=== PATIENT | male | born 1945 | race Caucasian/White ===

== ENCOUNTER 2016-08-31 18:02 | Emergency (ER) | payer OTHER ==
[2016-08-31 18:12] VITALS: BP 139/89; PULSE 73; RESP 16; TEMP 97.3; O2SAT 95
--- NOTE | 2016-08-31 18:36 | EDPHY ---
H & P Time Seen by Provider: 08/31/16 18:21 HPI/ROS: CHIEF COMPLAINT: Laceration forehead HISTORY OF PRESENT ILLNESS: 71-year-old male presents to the emergency department with forehead laceration. The patient was at home and he was attaching a hitch to his vehicle and it fell and hit him in the forehead. The incident happened just prior to arrival. He denies a headache. Did not lose consciousness. Denies neck or back pain. Denies chest pain or difficulty breathing. Denies injury to upper lower extremities. He is unsure of his last tetanus shot. REVIEW OF SYSTEMS: Constitutional: No fever, no chills. Eyes: No double or blurry vision. ENT: No sore throat. Respiratory: No cough, no shortness of breath. Cardiac: No chest pain. Gastrointestinal: No abdominal pain, vomiting or diarrhea. Genitourinary: No dysuria. Musculoskeletal: No neck or back pain. Skin: For laceration as above. No rashes. Neurological: No headache. Past Medical/Surgical History: Coon's esophagus, prostatectomy, hypertension, orthopedic surgeries Social History: Smoking Status: Never smoked Physical Exam: General Appearance: Alert, no distress. Mentating normally and answering questions appropriately. Eyes: Pupils equal and round. Extraocular motions are all intact. Nontender to palpate over superior or inferior orbital rims on the left side. ENT: Mouth: Mucous membranes moist. Respiratory: No wheezing, rhonchi, or rales, lungs are clear to auscultation. Cardiovascular: Regular rate and rhythm. Gastrointestinal: Abdomen is soft and nontender, no masses, no rebound or guarding, bowel sounds normal. Neurological: Alert and oriented x 3, cranial nerves II through XII grossly intact Skin: 2.5 cm laceration noted above the left eyebrow. Warm and dry, no rashes. Musculoskeletal: Nontender to palpate along the cervical, thoracic or lumbar spine. Neck is supple. Extremities: Full range of motion and no peripheral edema. Psychiatric: Patient is oriented X 3, there is no agitation. Constitutional: Initial Vital Signs Temperature (C) 36.3 C 08/31/16 18:08 Heart Rate 73 08/31/16 18:08 Respiratory Rate 16 08/31/16 18:08 Blood Pressure 139/89 H 08/31/16 18:08 O2 Sat (%) 95 08/31/16 18:08 O2 Delivery Mode Room Air Allergies/Adverse Reactions: cephalexin Allergy (Verified 08/31/16 18:06) NSAIDS (Non-Steroidal Anti-Inflamma Allergy (Verified 08/31/16 18:06) thimerosal Allergy (Verified 08/31/16 18:06) Home Medications: Medication Instructions Recorded Ascorbic Acid [Vitamin C 500 mg 500 mg PO BID 03/05/15 (*)] Cholecalciferol Vit D3 [Vitamin D3 1,000 units PO DAILY 03/05/15 (*)] Glucosamine/Chondroitin 1 each PO BID 03/05/15 [Glucosamine/Chondroitin (*)] Herbals/Supplements -Info Only 1 ea PO DAILY 03/05/15 Pantoprazole Sodium [Protonix 40mg 40 mg PO DAILY 03/05/15 (*)] Cholecalciferol Vit D3 [Vitamin D3 1,000 units PO DAILY #0 tab 03/08/15 (*)] Diazepam [Valium 5 MG (*)] 2.5 - 5 mg PO Q6 PRN #0 tab 03/08/15 Glucosamine/Chondroitin 1 each PO BID #0 cap 03/08/15 [Glucosamine/Chondroitin (*)] Lisinopril [Zestril 20 mg (*)] 20 mg PO DAILY #0 tab 03/08/15 PARoxetine HCL [Paxil 20mg (*)] 20 mg PO BID #0 tab 03/08/15 Zolpidem Tartrate [Ambien 5MG (*)] 5 - 10 mg PO HS PRN #0 tab 03/08/15 buPROPion SR [Wellbutrin 150mg SR 150 mg PO BID #0 tab 03/08/15 (*)] Medical Decision Making Procedures: Laceration repair. Verbal consent was obtained from the patient. The 2.5 cm laceration on the left anterior forehead above left eyebrow was anesthetized using 1% lidocaine with epinephrine. The wound was irrigated with saline, draped and explored to its base with a gloved finger. There were no deep structures involved. No tendon injury was identified. The wound was repaired with 5 0 Prolene, 7 sutures. The wound repair was simple. The procedure was performed by myself. ED Course/Re-evaluation: 71-year-old male presents to the emergency department with forehead laceration. The wound was repaired, see procedure note. Patient is mentating normally and has a normal neurologic examination. I discussed the pros and cons of CT imaging of his brain including radiation exposure the patient declined. Feel that he has a capacity to make this decision. He will return if he develops headache, vomiting, altered mental status, or any other concerns. Differential Diagnosis: Head injury including but not limited to concussion, skull fracture, intraparenchymal contusion, subarachnoid, subdural and epidural hematoma. - Data Points Medications Given: Discontinued Medications Diphtheria/Tetanus/Acell Pertussis (Boostrix) 0.5 ml IM .ONCE ONE Stop: 08/31/16 18:50 Last Admin: 08/31/16 18:52 Dose: 0.5 ml Departure - Departure Disposition: Home, Routine, Self-Care Clinical Impression: Forehead laceration Qualifiers: Encounter type: initial encounter Qualified Code(s): S01.81XA - Laceration without foreign body of other part of head, initial encounter Condition: Good Instructions: Care For Your Stitches (ED), Laceration (ED), Acute Wounds (ED) Additional Instructions: Wound Care Follow-Up: Removal of sutures in 7 days. Suture removal is complimentary in uncomplicated cases. Infection or abnormal findings would require reevaluation by the MD. In that case, you may be billed. Your given a tetanus shot today in the emergency department. Return if he notices any signs or symptoms of infection such as redness, swelling, increased pain, fever, purulent drainage. Referrals: LOUIS PTAEL [Primary Care Provider] - As per Instructions
[2016-08-31] MEDS ORDERED: TDAP ADULT 0.5 ML INJ (BOOSTRIX) IM ONE (18:49)
== END 2016-08-31 19:06 | disposition home or self-care (01) ==
PROC: 0HQ1XZZ Repair Face Skin, External Approach (ICD-10-PCS; principal; 2016-08-31)
DX: S01.81XA Laceration without foreign body of other part of head, initial encounter (principal); I10 Essential (primary) hypertension; Z23 Encounter for immunization; W18.09XA Striking against other object with subsequent fall, initial encounter; Y92.009 Unspecified place in unspecified non-institutional (private) residence as the place of occurrence of the external cause; Y99.8 Other external cause status; Y93.89 Activity, other specified

== ENCOUNTER 2016-09-13 17:33 | Emergency (ER) | payer OTHER ==
[2016-09-13 17:42] VITALS: RESP 18; O2SAT 95
--- NOTE | 2016-09-13 17:47 | EDPHY ---
H & P Time Seen by Provider: 09/13/16 17:46 HPI/ROS: Chief complaint. Foot injury HPI. 71-year-old male was on hooking a trailer from his car. The [place] with the wheel to hold the trailer up was apparently not fully engaged in the trailer came down crushing the top of his right foot. No other injuries. No previous injury. He has laceration as well as pain. Good movement toes. Distal motor vascular sensitivity is intact. ROS Constitutional. no fever/chills, no weakness Eyes. no problems with vision ENT. no sore throat, no nasal drainage Cardiovascular. no chest pain Respiratory. no shortness of breath, no cough Abdominal. no abdominal pain, no nausea/vomiting, no diarrhea . no problems urinating MS. Right foot pain Skin. Laceration dorsum right foot Lymph. no swollen glands Neuro. no headache, no dizziness, no difficulty walking or with speech Past Medical/Surgical History: Coon's esophagus, prostatectomy, C-spine fusion, hypertension Social History: , nonsmoker, no alcohol Smoking Status: Never smoked Physical Exam: General Appearance: Alert well-developed male moderate distress vital signs are stable Eyes: Pupils equal and round no pallor or injection. ENT, Mouth: Mucous membranes are moist. Respiratory: There are no retractions, lungs are clear to auscultation. Cardiovascular: Regular rate and rhythm. Gastrointestinal: Abdomen is soft and nontender, no masses, bowel sounds normal. Neurological: Awake and alert, sensory and motor exams grossly normal. Skin: 5 cm laceration dorsum right midfoot Musculoskeletal: Tenderness to midfoot. Active extension all toes against resistance. Distal sensory and capillary refill normal Extremities symmetrical, full range of motion. Psychiatric: Patient is oriented X 3, there is no agitation. Constitutional: Initial Vital Signs Temperature (C) 36.4 C 09/13/16 17:39 Heart Rate 76 09/13/16 17:39 Respiratory Rate 18 09/13/16 17:39 Blood Pressure 149/87 H 09/13/16 17:39 O2 Sat (%) 95 09/13/16 17:39 O2 Delivery Mode Room Air Allergies/Adverse Reactions: cephalexin Allergy (Verified 09/13/16 17:38) NSAIDS (Non-Steroidal Anti-Inflamma Allergy (Verified 09/13/16 17:38) thimerosal Allergy (Verified 09/13/16 17:38) Home Medications: Medication Instructions Recorded Ascorbic Acid [Vitamin C 500 mg 500 mg PO BID 03/05/15 (*)] Cholecalciferol Vit D3 [Vitamin D3 1,000 units PO DAILY 03/05/15 (*)] Glucosamine/Chondroitin 1 each PO BID 03/05/15 [Glucosamine/Chondroitin (*)] Herbals/Supplements -Info Only 1 ea PO DAILY 03/05/15 Pantoprazole Sodium [Protonix 40mg 40 mg PO DAILY 03/05/15 (*)] Cholecalciferol Vit D3 [Vitamin D3 1,000 units PO DAILY #0 tab 03/08/15 (*)] Diazepam [Valium 5 MG (*)] 2.5 - 5 mg PO Q6 PRN #0 tab 03/08/15 Glucosamine/Chondroitin 1 each PO BID #0 cap 03/08/15 [Glucosamine/Chondroitin (*)] Lisinopril [Zestril 20 mg (*)] 20 mg PO DAILY #0 tab 03/08/15 PARoxetine HCL [Paxil 20mg (*)] 20 mg PO BID #0 tab 03/08/15 Zolpidem Tartrate [Ambien 5MG (*)] 5 - 10 mg PO HS PRN #0 tab 03/08/15 buPROPion SR [Wellbutrin 150mg SR 150 mg PO BID #0 tab 03/08/15 (*)] Amoxicillin/Clavulanate Pot 875 mg PO BID #14 tab 09/13/16 [Augmentin 875 MG TAB (*)] oxyCODONE/APAP 5/325 [Percocet 1 tab PO Q4-6PRN PRN #14 tab 09/13/16 5/325] Medical Decision Making - Diagnostics Imaging Results: Imaging Impressions Foot X-Ray 09/13/16 17:55 Impression: 1. Transverse fractures of the second and third metatarsal diaphyses with plantar displacement and minimal comminution. 2. Possible erosive osteoarthritis or inflammatory arthritis of the distal interphalangeal joint of the third toe with scattered erosions as above suggesting inflammatory arthritis. 3. Additional findings as above. X-ray right foot interpreted by me shows fractures midshaft metatarsals 2 and 3 with mild displacement Procedures: Procedure: Laceration repair. Verbal consent was obtained from the patient. The 5 cm laceration on the dorsum right foot was anesthetized in the usual fashion. The wound was irrigated, draped and explored to its base with a gloved finger. There were no deep structures involved. No tendon injury was identified. The wound was repaired with ten 4-0 Prolene sutures. The wound repair was simple. The procedure was performed by myself. IV Levaquin as patient says is allergic to cephalexin ED Course/Re-evaluation: On further discussion about the patient's allergy to cephalexin he tells me that 1 time he was taking Keflex and woke up with numbness to the left arm which went away. It does not really sound like this is typical allergy. Patient is placed in fiberglass posterior splint. Post splint application shows good anatomic position and distal motor vascular sensitivity intact. He is placed on crutches. Sent home with Percocet. He will begin Augmentin tomorrow Re-evaluation 8:40 p.m. patient is stable. The patient, his , and I discussed imaging study results, treatment plan including importance of follow- up and further evaluation. They expressed understanding and agreement Differential Diagnosis: I considered fracture, dislocation, laceration, retained foreign body, tendon injury, infection potential - Data Points Medications Given: Discontinued Medications Levofloxacin/Dextrose (Levaquin 750 Mg (Premix)) 150 mls @ 100 mls/hr IV EDNOW ONE PRN Reason: Protocol Stop: 09/13/16 19:50 Last Admin: 09/13/16 19:19 Dose: 150 mls Departure - Departure Disposition: Home, Routine, Self-Care Clinical Impression: Laceration Metatarsal fracture Qualifiers: Encounter type: initial encounter Metatarsal bone: second Fracture type: open Fracture alignment: displaced Laterality: right Qualified Code(s): S92.321B - Displaced fracture of second metatarsal bone, right foot, initial encounter for open fracture Condition: Good Instructions: Foot Fracture in Adults (ED) Additional Instructions: Ice and elevation next 24-48 hours. Augmentin as antibiotic. Tylenol or Percocet as needed for pain. Splint and crutches until see orthopedist. Call orthopedist in morning to be re-evaluated in the office in the next 2-3 days. Tell them you have an open fracture of the 2nd and 3rd metatarsals of your right foot. Return for worsening pain, fever, vomiting Referrals: LOUIS PATEL [Primary Care Provider] - As per Instructions Jose J Roberts MD [Medical Doctor] - 2-3 days, call for appt. Prescriptions: Amoxicillin/Clavulanate Pot [Augmentin 875 MG TAB (*)] 875 mg PO BID #14 tab oxyCODONE/APAP 5/325 [Percocet 5/325] 1 tab PO Q4-6PRN PRN #14 tab PRN Reason: Pain, Moderate
[2016-09-13] MEDS ORDERED: OXYCODONE/APAP 5/325MG PREPACK#4 BTL TAKEHOME ONE (19:19)
[2016-09-13 21:08] VITALS: BP 125/84; PULSE 81; TEMP 97.9
== END 2016-09-13 21:21 | disposition home or self-care (01) ==
PROC: 0HQMXZZ Repair Right Foot Skin, External Approach (ICD-10-PCS; principal; 2016-09-13)
DX: S92.321B Displaced fracture of second metatarsal bone, right foot, initial encounter for open fracture (principal); S91.311A Laceration without foreign body, right foot, initial encounter; I10 Essential (primary) hypertension; W23.1XXA Caught, crushed, jammed, or pinched between stationary objects, initial encounter; Y93.89 Activity, other specified
CPT/HCPCS: 12002; 73630; 96365; 96366; 99284; J1956

== ENCOUNTER 2018-03-14 22:08 | Inpatient (IN) | payer OTHER ==
[2018-03-14] MEDS ORDERED: NS 1,000 ML IV ONE (22:10)
--- NOTE | 2018-03-14 22:31 | EDPHY ---
H & P Stated Complaint: bilat arm pain, radiates to chest Time Seen by Provider: 03/14/18 22:27 HPI/ROS: HPI CHIEF COMPLAINT: Bilateral arm pain, chest pain HISTORY OF PRESENT ILLNESS: A 72-year-old male, presents emergency room by private vehicle with his for bilateral forearm pain and chest pain. He states that he was at [employer] tonight. He started feeling sick. Around 8pm a.m. He had to leave [employer] went out to the lobby. Where he felt unwell. Nauseous. He then developed some bilateral arm pain. Mainly discomfort in his bilateral forearms. He also reports that he had some left- sided chest discomfort. He denies any pleuritic pain or shortness of breath. Denies fever. Denies productive cough. Patient describes achy sensation left- sided chest bilateral forearms. Past Medical History: Past medical history significant for hypertension, mild cognitive decline, possibly early dementia Past Surgical History: No recent surgery Social History: Denies drugs alcohol tobacco. Family History: noncontributory ROS REVIEW OF SYSTEMS: 10 Systems were reviewed and negative with the exception of the elements mentioned in the history of present illness. Exam Constitutional appears well nontoxic triage nursing summary reviewed, vital signs reviewed, awake/alert. Eyes normal conjunctivae and sclera, EOMI, PERRLA. HENT normal inspection, atraumatic, moist mucus membranes, no epistaxis, neck supple/ no meningismus, no raccoon eyes. Respiratory clear to auscultation bilaterally, normal breath sounds, no respiratory distress, no wheezing. Cardiovascular cardiovascular exam patient has good pulses bilaterally both radial pulses are 2+, equal and symmetrical comma no abdominal pulse siding mas , rate normal, regular rhythm, no murmur, no edema, distal pulses normal. Gastrointestinal soft, non-tender, no rebound, no guarding, normal bowel sounds, no distension, no pulsatile mass. Genitourinary no CVA tenderness. Musculoskeletal no midline vertebral tenderness, full range of motion, no calf swelling, no tenderness of extremities, no meningismus, good pulses, neurovascularly intact. Skin pink, warm, & dry, no rash, skin atraumatic. Neurologic awake, alert and oriented x 3, AAOx3, moves all 4 extremities equally, motor intact, sensory intact, CN II-XII intact, normal cerebellar, normal vision, normal speech. Psychiatric normal mood/affect. Heme/Lymph/Immune no lymphadenopathy. Differential diagnosis includes but is not limited to: ACS, atypical chest pain , pneumothorax, pneumonia, pulmonary embolism, aortic dissection, congestive heart failure, tumor, musculoskeletal pain, esophageal pain, GERD, peptic ulcer disease, pancreatitis Medical Decision Making: Plan for this patient IV establishment full cardiac specialist, EKG to rule out acute coronary syndrome, troponin, chest x-ray low threshold for CT of the chest given bilateral arm pain and chest pain. Rule out aortic dissection. Check D-dimer. Re-evaluation: EKG interpretation by me on record in [facility] system. Impression time of EKG 2223 there is no old EKG to compare this to however this EKG is reading sinus rhythm rate of 71, minimal ST depression in lateral leads lead 1, less so in lead aVL. Q-waves noted V1 V2. No ST elevation. No old EKG to compare this to. EKG was performed due to chest pain. Troponin noted be negative. D-dimer slightly positive. ED x-ray chest one view negative for acute cardiac pulmonary disease CT angiogram of the chest shows no evidence of aortic dissection or pulmonary embolism care called to me by Dr. Stroud. 1217: Discussed results with the patient. And what the bedside. Agrees to stay tonight for further cardiac evaluation given abnormal EKG, chest discomfort relieved by nitroglycerin. Repeat EKG time 23:45 p.m. T-wave abnormalities lead 3 and AVF. Source: Patient - Personal History Current Tetanus/Diphtheria Vaccine: Yes Current Tetanus Diphtheria and Acellular Pertussis (TDAP): Yes - Medical/Surgical History Hx Asthma: No Hx Chronic Respiratory Disease: No Hx Diabetes: No Hx Cardiac Disease: No Hx Renal Disease: No Hx Cirrhosis: No Hx Alcoholism: No Hx HIV/AIDS: No Hx Splenectomy or Spleen Trauma: No Other PMH: aliya's esophagus, prostatectomy, c spine fusion, HTN, BACK SURG/ KNEE SURG - Social History Smoking Status: Never smoked Constitutional: Initial Vital Signs Temperature (C) 36.7 C 03/14/18 22:15 Heart Rate 73 03/14/18 22:15 Respiratory Rate 18 03/14/18 22:15 Blood Pressure 149/95 H 03/14/18 22:15 O2 Sat (%) 95 03/14/18 22:15 O2 Delivery Mode Room Air O2 (L/minute) 4 Allergies/Adverse Reactions: cephalexin Allergy (Verified 03/14/18 22:14) NSAIDS (Non-Steroidal Anti-Inflamma Allergy (Verified 03/14/18 22:14) thimerosal Allergy (Verified 03/14/18 22:14) Home Medications: Medication Instructions Recorded Herbals/Supplements -Info Only 1 ea PO DAILY 03/05/15 PARoxetine HCL [Paxil 20mg (*)] 20 mg PO BID #0 tab 03/08/15 buPROPion XL [Wellbutrin 150mg XL] 150 mg PO DAILY 03/15/18 lamOTRIGine [Lamotrigine] 100 mg PO BID 03/15/18 Aspirin EC [Aspirin EC 325 mg (*)] 325 mg PO DAILY #30 tab 03/16/18 Clopidogrel Bisulfate [Plavix (*)] 75 mg PO DAILY #30 tab 03/16/18 Lisinopril [Zestril 20 mg (*)] 10 mg PO DAILY #30 tab 03/16/18 Metoprolol Tartrate [Lopressor 25 12.5 mg PO BID #60 tab 03/16/18 mg (*)] Pantoprazole Sodium [Protonix 40mg 40 mg PO DAILY #60 tab 03/16/18 (*)] Rosuvastatin Calcium [Crestor] 10 mg PO DAILY #30 tab 03/16/18 Medical Decision Making - Data Points Laboratory Results: Laboratory Results 03/16/18 03:20 03/16/18 03:20 Medications Given: Discontinued Medications Aspirin Buffered (Aspirin Ec) 325 mg PO DAILY [facility] Stop: 09/12/18 08:59 Last Admin: 03/16/18 09:47 Dose: 325 mg Bupropion HCl (Wellbutrin Sr) 150 mg PO BID [facility] Stop: 09/11/18 08:59 Last Admin: 03/16/18 10:08 Dose: Not Given Bupropion HCl (Wellbutrin Xl) 150 mg PO DAILY [facility] Stop: 09/11/18 22:14 Last Admin: 03/16/18 09:49 Dose: 150 mg Clopidogrel Bisulfate (Plavix) 600 mg PO ONCE ONE Stop: 03/15/18 11:27 Last Admin: 03/15/18 22:13 Dose: Not Given Clopidogrel Bisulfate (Plavix) 75 mg PO DAILY [facility] Stop: 09/12/18 08:59 Last Admin: 03/16/18 09:47 Dose: 75 mg Fentanyl (Sublimaze) 0 mcg IVP ONCALL PRN PRN Reason: Per provider during procedure Stop: 03/15/18 17:02 Last Admin: 03/15/18 17:14 Dose: 100 mcg Lisinopril/HCTZ (Zestoretic) 2 ea PO DAILY [facility] Stop: 09/12/18 08:59 Last Admin: 03/16/18 10:08 Dose: Not Given Sodium Chloride (Ns) 1,000 mls @ 0 mls/hr IV EDNOW ONE; Wide Open PRN Reason: Protocol Stop: 03/14/18 22:11 Last Admin: 03/14/18 22:31 Dose: 1,000 mls Dextrose/Sodium Chloride (D5w 1/2 Ns) 1,000 mls @ 100 mls/hr IV CONT [facility]VIN Stop: 03/15/18 21:29 Last Admin: 03/15/18 22:13 Dose: Not Given Lamotrigine (Lamictal) 100 mg PO BID [facility] Stop: 09/11/18 21:44 Last Admin: 03/16/18 09:48 Dose: 100 mg Lisinopril (Zestril) 20 mg PO DAILY [facility] Stop: 09/12/18 13:29 Last Admin: 03/16/18 14:40 Dose: 20 mg Metoprolol Tartrate (Lopressor) 12.5 mg PO BID [facility] Stop: 09/12/18 13:29 Last Admin: 03/16/18 14:39 Dose: 12.5 mg Miscellaneous Medication (Pantoprazole Sodium [Protonix]) 20 mg PO DAILY [facility] Stop: 09/12/18 08:59 Last Admin: 03/16/18 09:53 Dose: 20 mg Nitroglycerin (Nitrostat) 0.4 mg SL EDNOW ONE Stop: 03/14/18 22:28 Last Admin: 03/14/18 22:57 Dose: 0.4 mg Pantoprazole Sodium (Protonix) 40 mg PO DAILY [facility] Stop: 09/12/18 13:29 Last Admin: 03/16/18 14:39 Dose: 40 mg Paroxetine HCl (Paxil) 20 mg PO BID [facility] Stop: 09/11/18 20:59 Last Admin: 03/16/18 09:48 Dose: 20 mg Rosuvastatin Calcium (Crestor) 10 mg PO DAILY [facility] Stop: 09/12/18 13:29 Last Admin: 03/16/18 14:39 Dose: 10 mg Point of Care Test Results: Chemistry 03/14/18 22:30 POC Troponin I 0.04 ng/mL ng/mL (0.00-0.08) Departure - Departure Disposition: [facility] Inpatient Acute Clinical Impression: NSTEMI (non-ST elevated myocardial infarction) Chest pain Qualifiers: Chest pain type: unspecified Qualified Code(s): R07.9 - Chest pain, unspecified Condition: Fair
[2018-03-14 22:37] LABS: PLATELET COUNT 223 10^3/uL (150-400)
[2018-03-14] MEDS: NITROGLYCERIN 0.4 MG BTL SL ONE ×2 (22:37→22:57)
[2018-03-14 22:47] LABS: INR 0.95 (0.83-1.16); PROTIME(PATIENT) 12.9 SEC (12.0-15.0)
[2018-03-14] MEDS ORDERED: IOPAMIDOL (ISOVUE 370) 100 ML BTL IV ONE (22:53)
[2018-03-15] MEDS ORDERED: ONDANSETRON 4 MG/2 ML VIAL IVP PRN (01:07)
[2018-03-15] MEDS ORDERED: ACETAMINOPHEN 325 MG TAB PO PRN (01:07)
[2018-03-15] MEDS ORDERED: ONDANSETRON DISINTEGRATING 4 MG TAB PO PRN (01:07)
[2018-03-15] MEDS ORDERED: HYDROCODONE/APAP 5/325 TAB PO PRN ×2 (01:07→11:26)
[2018-03-15] MEDS ORDERED: NS 1,000 ML IV SCH ×2 (01:15→16:15)
[2018-03-15] MEDS ORDERED: NITROGLYCERIN 0.4 MG BTL SL PRN (02:24)
[2018-03-15 06:25] LABS: PLATELET COUNT 195 10^3/uL (150-400)
[2018-03-15 06:51] LABS: CREATINE KINASE 276 IU/L (0-224)
--- NOTE | 2018-03-15 07:10 | CPEKG ---
Test Reason : OPEN Blood Pressure : / mmHG Vent. Rate : 071 BPM Atrial Rate : 071 BPM P-R Int : 202 ms QRS Dur : 115 ms QT Int : 417 ms P-R-T Axes : 040 -12 016 degrees QTc Int : 454 ms Sinus rhythm Nonspecific intraventricular conduction delay Minimal ST depression, lateral leads Confirmed by Connor Silvestre ([id number]) on 03/15/2018 7:09:26 AM Referred By: Confirmed By:Connor Silvestre
--- NOTE | 2018-03-15 07:10 | CPEKG ---
Test Reason : OPEN Blood Pressure : / mmHG Vent. Rate : 067 BPM Atrial Rate : 068 BPM P-R Int : 198 ms QRS Dur : 113 ms QT Int : 432 ms P-R-T Axes : 043 005 -13 degrees QTc Int : 456 ms Sinus rhythm Borderline T abnormalities, inferior leads Confirmed by Connor Silvestre ([id number]) on 03/15/2018 7:09:27 AM Referred By: Confirmed By:Connor Silvestre
--- NOTE | 2018-03-15 08:05 | GHP ---
DATE OF ADMISSION: 03/15/2018 SOURCE: Patient provides history, is a fair historian, EMR was reviewed, and case discussed with ED provider. CHIEF COMPLAINT: Chest pain and bilateral arm pain. 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 Patient reports that he was at a [employer] study. He started to feel unwell, walked out and sat down. He develo ped some nausea and bilateral arm pain, as well as left-sided chest pain. He denied any shortness of breath. No fevers, chills, cough. The patient's forearm pain, he reports has been intermittent for the past 3 days. He denies any neck or jaw pain. The patient reports he had a stress test almost 2 0 years ago, nothing recently. REVIEW OF SYSTEMS: Ten systems reviewed, otherwise negative except as noted above. ALLERGIES: Cephalexin, NSAIDs, . HOME MEDICATIONS: Wellbutrin 150 mg p.o. b.i.d., Ambien 5-10 mg p.o. at h.s. p.r.n., Protonix 40 mg p.o. daily, Paxil 20 mg p.o. b.i.d., lisinopril 20 mg p.o. daily, vitamin E, aloe vera, Krill oil, Om ega Red, vitamin B12, glucosamine chondroitin 1 tab p.o. b.i.d., vitamin D3, 1000 units p.o. daily. PAST MEDICAL HISTORY: Significant for hypertension, GERD with history of Coon's, osteoarthritis, history of fall from a ladder resulting in thoracic spine fracture, pelvic hematoma, hypertension. T he patient reports an issue with memory deficits. Notes that he has a familial frontoparietal tempor al degenerative condition, likely dementia. PAST SURGICAL HISTORY: Significant for EGD, cervical spine fusion, prostatectomy, knee surgery. FAMILY HISTORY: Significant for father with CAD age 60. Sister CHF, progressive dementia, frontoparietal temporal. SOCIAL HISTORY: The patient is , lives with his . He drinks a rare glass of wine. He is not using illicit drugs. CODE STATUS: Full. PHYSICAL EXAMINATION: VITAL SIGNS: Upon arrival to the emergency department, blood pressure 149/95, heart rate 73, respiratory rate 18, O2 saturation is 95% on room air on room air with temperature 36 .7. GENERAL: No acute distress pleasant. Adult gentleman, is resting quietly in bed. HEAD: Normo cephalic, atraumatic. EYES: Extraocular muscles are intact. Pupils equal, round, reactive to light bilaterally and symmetric. No scleral icterus or conjunctival injection. ENT: Mucous membranes ap pear moist. No oropharyngeal erythema or exudates. Dentition with dentures in place. NECK: Supple . Trachea midline. CV: Regular rate and rhythm. No murmurs, rubs, or gallops. Slightly distant h eart sounds. RESPIRATORY: Unlabored breathing. Lungs are clear to auscultation bilaterally. No wh eezes, rales, or rhonchi. ABDOMEN: Obese, soft, nontender to palpation. No rebound, guarding, or m asses appreciated. Positive bowel sounds. : No suprapubic tenderness to palpation. No Beckett cat heter in place. MUSCULOSKELETAL: Strength is grossly intact. Patient able to sit up independently. He moves all extremities. NEURO: Grossly nonfocal. No facial drooping. Moves all extremities. PSYCH: Patient is just a little bit anxious, but he is pleasant and cooperative, very talkative, red irectable. Thought process, content, and questions are appropriate, but the patient does admit that he has some memory deficits. He, otherwise, is able to recall answers to most questions. DATA REVIEWED: Laboratory studies: WBC 6.86, H and H are 16.1 and 45.3, MCV of 86.3, platelet count is 223, no bands. PT is 12.9, INR 0.95, PTT is 33.3. D-dimer 0.55. Sodium is 137, potassium 3.9, chloride is 103, CO2 is 23, anion gap 11, BUN 16, creatinine is 1.1, GFR greater than 60, glucose is 96, calcium 10.1, magnesium 2.0, total bilirubin 0.4, ALT is 27, AST 30, alkaline phosphatase 69. __ is 235. Total protein 6.9, albumin 4.4, lipase 296. Troponin point of care 0.04. Repeated morning studies are otherwise similar except for troponin with rise to 1.810. CT of the chest, his report reviewed, negative for PE, negative for aortic dissection. Minimal calci fied aortic plaque is seen. EKG is reviewed by myself. No previously comparison EKGs available. Initial EKG showing normal sinu s rhythm with minimal ST depression in the lateral leads, T-wave inversion in the inferior leads, QTc is 454. No acute ST elevation. Repeat EKG at 2338 showing T-wave inversions in the inferior leads again noted with improving ST depression in the lateral leads, but still persistent V5, V6, QTc 456. A.m. EKG with more prominent T-wave inversions in the inferior leads. Persistent ST depressions in t he lateral leads. QTc 479. Chest x-ray image report reviewed. CTA normal chest, nothing acute. ASSESSMENT AND PLAN: A pleasant 72-year-old gentleman with history of hypertension, gastroesophageal reflux disease with Coon's, memory deficits, and report of progressive memory loss likely frontop arietal temporal dementia presents with complaints of left-sided chest pain and bilateral arm pain. 1. Non-ST segment elevation myocardial infarction. The patient's troponin has risen from negative t o 1.8. He continues to have ST depressions and T-wave inversions in inferolateral leads. He is unab le to take non-steroidal anti-inflammatory drugs, was not given any aspirin due to this allergy. Car diology will be consulted for further evaluation and recommendations. Chest pain: This was resolved with nitroglycerin. He is currently chest pain free despite his EKG changes on repeat studies. 2. Benign essential hypertension. Blood pressures have been variable, slightly declined after nitro glycerin. Patient otherwise asymptomatic. Continue with some IV fluids. Echocardiogram. Continue patient's lisinopril. 3. Gastroesophageal reflux disease. Continue patient's proton pump inhibitor. 4. Progressive memory decline. Supportive care. Resume patient's home Wellbutrin and Paxil. 5. Fluid, electrolyte, nutrition. IV fluids for blood pressure support and hydration after contrast . Electrolyte monitoring replacement if needed. The patient will be made n.p.o. pending Cardiology evaluation. 6. Prophylaxis: Sequential compression devices. Further discussion with Cardiology if they would l torey heparin or other anticoagulation. 7. Cor status is full. 8. Disposition: The patient initially admitted to observation status for chest pain evaluation give n elevated troponin. We will convert into inpatient status to progressive care unit. Anticipate gre ater than 2 midnight stay. /[id number]/MODL
--- NOTE | 2018-03-15 08:53 | HOSPPROG ---
Hospitalist Progress Note Assessment/Plan: 72 yo male admitted with chest pain. Initial trop unremarkable. Now with increase of troponin and EKG findings c/w ST depression 4-6 and T wave inversions. He is allergic to Aspirin. He no longer has CP after Nitro was given CTA negative for P.E. or dissection #NSTEMI -Hemodynamically stable -w/o chest pain -allergic to Aspirin -I have notified Cards who will see him. They have asked to hold off on AC until their evaluation -A TTE has been ordered and this is being done now -NPO #HTN, now with soft BP after Nitro -will monitor closely -will hold BP meds for now #GERD: cont PPI #Dementia: SCDs Subjective: no chest pain. BP 92/74. seen in the E.R. Objective: Vital Signs Temp Pulse Resp BP Pulse Ox 36.7 C 72 18 92/74 L 96 03/15/18 08:00 03/15/18 08:00 03/15/18 08:00 03/15/18 08:00 03/15/18 08:00 Laboratory Results 03/15/18 06:00 03/15/18 06:00 PT 12.9 SEC (12.0-15.0) 03/14/18 22:20 INR 0.95 (0.83-1.16) 03/14/18 22:20 - Physical Exam Constitutional: no apparent distress Eyes: PERRL, EOMI Ears, Nose, Mouth, Throat: moist mucous membranes, hearing normal Cardiovascular: regular rate and rhythym, No edema Respiratory: no respiratory distress, no rales or rhonchi, clear to auscultation Gastrointestinal: normoactive bowel sounds, soft, non-tender abdomen Skin: warm Neurologic: AAOx3 Psychiatric: interacting appropriately, not anxious, not encephalopathic Lymph, Heme, Immunologic: No petechiae ICD10 Worksheet Patient Problems: Problems Problem Status Onset Chest pain Acute Fall from ladder Acute History of fusion of cervical spine Acute Hypertension Acute Lower extremity weakness Acute Pelvic hematoma in male Acute Thoracic spine fracture Acute
[2018-03-15] MEDS ORDERED: CHOLECALCIFEROL VIT D3 1,000 UNITS TAB PO SCH (09:00)
[2018-03-15] MEDS ORDERED: PANTOPRAZOLE SODIUM 40 MG TAB PO SCH (09:00)
[2018-03-15] MEDS ORDERED: LIDOCAINE 1% 300 MG/30 ML SDV ONE (09:26)
[2018-03-15] MEDS ORDERED: IOPAMIDOL (ISOVUE-370) 150 ML BTL IV ONE ×2 (09:27→10:46)
[2018-03-15] MEDS ORDERED: fentaNYL 100 MCG/2 ML INJ ONE ×2 (09:27→15:59)
[2018-03-15] MEDS ORDERED: MIDAZOLAM 2 MG/2 ML VIAL ONE ×2 (09:27→15:58)
[2018-03-15] MEDS ORDERED: ASPIRIN 325 MG TAB ONE (09:43)
[2018-03-15] MEDS ORDERED: BIVALIRUDIN 250 MG/5 ML VIAL IV ONE (09:56)
[2018-03-15] MEDS ORDERED: EPINEPHrine 1 MG/10 ML SYR IVP ONE (09:56)
[2018-03-15] MEDS ORDERED: ATROPINE SULFATE 1 MG/10 ML SYR ONE (09:56)
[2018-03-15] MEDS ORDERED: NITROGLYCERIN 1,500 MCG/15 ML VIAL MISC ONE ×2 (09:56→10:14)
[2018-03-15] MEDS ORDERED: ABCIXIMAB 10 MG/5 ML VIAL ONE ×3 (10:12→10:21)
[2018-03-15] MEDS ORDERED: CLOPIDOGREL BISULFATE 75 MG TAB PO ONE (11:26)
[2018-03-15] MEDS ORDERED: ATROPINE SULFATE 1 MG/10 ML SYR IVP PRN (11:26)
[2018-03-15] MEDS ORDERED: LORazepam 2 MG/ML INJ IVP PRN (11:26)
[2018-03-15] MEDS ORDERED: TEMAZEPAM 15 MG CAP PO PRN (11:26)
[2018-03-15] MEDS ORDERED: CLOPIDOGREL BISULFATE 75 MG TAB ONE (11:29)
[2018-03-15] MEDS ORDERED: D5W 1/2 NS 1,000 ML IV SCH (11:30)
--- NOTE | 2018-03-15 11:38 | PDPROPOC ---
Sedation Plan of Care Sedation Plan of Care: vital signs stable, mental status noted, patient educated of risks, benefits, alternatives, patient can tolerate sedation ASA Classification: ASA 4 Planned drugs: fentanyl, midazolam Mallampati Score: Class 3 Mallampati Reference Image: Patient passed 3-3-2 rule?: Yes
--- NOTE | 2018-03-15 11:48 | PDHPUP ---
History & Physical Update H&P update statement: This history and physical update is based on an assessment of the patient which was completed after admission or registration (within 24 hours), but prior to the surgery/procedure. H&P update: H&P reviewed & patient examined, no change in patient's condition since H&P completed
--- NOTE | 2018-03-15 14:48 | CPIP ---
DATE OF PROCEDURE: 03/15/2018 PROCEDURE PERFORMED: 1. Selective coronary angiography. 2. Left heart catheterization. 3. Left ventriculogram. 4. Percutaneous transluminal coronary angioplasty and stent placement of the right coronary artery with 2 stents, proximally a 4.0 x 16 Synergy drug-eluting stent, and in the mid right coronary artery, a 4.0 x 20 Synergy drug-eluting stent, cutting balloon angioplasty of a side branch of the right coronary artery. COMPLICATIONS: None. SKETCH ARTIST: Donny Pastor MD INDICATION FOR PROCEDURE: Subendocardial myocardial infarction. BRIEF CLINICAL HISTORY: The patient presented with left-sided chest pain with radiation in both of his arms, especially in his forearms, which was quite severe, resolved with sublingual nitroglycerin. He was admitted for observation , remained in the emergency department because of hospital bed status, and was noted to have an elevation in troponin this morning to a level of 1.810. The N terminal ProBNP was also elevated at 235. The EKG revealed ST-segment depression in V2, V3, and V4 with inferolateral ST depression, as well as T- wave inversion in lead III. An echocardiogram was obtained in the emergency department documenting basal inferior wall motion abnormality consistent with myocardial ischemia. I was asked to see the patient in consultation for that reason. PROCEDURE IN DETAIL: After informed consent was obtained, n.p.o. status was confirmed, the region of the right groin was cleaned, prepped, and draped in sterile fashion. Approximately 15 cc of 1% lidocaine was utilized for local anesthesia. A micropuncture set was used to gain access to the right common femoral artery with single anterior puncture of the vessel. Angiography documented that the external and common iliac were quite tortuous. The patient underwent the previously mentioned diagnostic procedures with use of JL4 and R4 curved coronary catheters, as well as a 6-Sudanese pigtail catheter. Standard wire exchange technique was utilized for all catheter exchanges. The left main coronary lumen is approximately 4 mm in size, 5 mm in size, and bifurcates into an LAD and circumflex system. There are luminal irregularities within the proximal LAD consistent underlying atherosclerosis. Maximal luminal stenosis is 5% to 10%. There was excellent SANDY-3 flow to the distal vessel. The left circumflex arises in its usual location; is approximately 4 mm in size , and also has luminal irregularity consistent with underlying atherosclerosis. There is evidence of gxck-uh-ztwrb collaterals to the distal right coronary artery without evidence of flow-limiting obstruction, dissection, or thrombus in the circumflex or LAD distribution. The right coronary artery was originally dominant; is 4 mm in size, and gives rise to a conus branch, as well as an RV branch and then is completely occluded with SANDY 0 flow. The patient underwent left heart catheterization demonstrating elevated left ventricular end-diastolic pressure measured at 22 mmHg. The patient underwent left ventriculogram in the TERRY projection, demonstrating preserved left ventricular systolic function. Ejection fraction is 50% with basal and distal inferior wall hypokinesis consistent with an ischemic presentation and acute coronary syndrome, as well as a subendocardial myocardial infarction. There is no evidence of significant mitral regurgitation upon pressurized injection and there is no evidence of a gradient upon pullback across the aortic valve. The visualized portion of thoracic aorta is normal in caliber and there are 3 sinuses of Valsalva most consistent with a trileaflet aortic valve. We turned our attention to the occlusion of the RCA. We initially tried to use the short 7-Sudanese sheath and a 7-Sudanese JR4 guiding catheter. Unfortunately, the JR4 guiding catheter twisted in the tortuosity in the groin, requiring that we removed the entire apparatus, cut the guiding catheter to readvance the wire into the lumen of the aorta and then placed an 8-Sudanese sheath into the femoral artery for adequate control of bleeding at the arteriotomy site. Pressure was held for at least 10 minutes and there was no evidence of a hematoma or leak of the this area. We then exchanged for a long pinnacle sheath, which was 8-Sudanese and then used a 7-Sudanese JR4 guiding catheter for guide catheter support. A 0.014 Synergy wire was advanced across the lesion in question, and then, a Pronto catheter was used to perform aspiration of the total occlusion. Subsequent angiography documented SANDY-3 flow into the RCA. At the level of the lesion, there was an important side branch that goes to the PLV distribution of the right coronary, as well as to the base of the PDA. We used a second 2nd Intuition wire to advance into this side branch and this was ballooned open with a 2-0 Emerge balloon, followed by 2.5 cutting balloon with serial inflations to try to preserve the side branch with stenting of the main channel. We then stented the blood vessel with a 4.0 x 20 Synergy drug-eluting stent with preservation of the side branch and SANDY-3 flow into the vessel. The proximal the RCA was noted to have a 50% lesion, which was then successfully stented with a 4.0 x 12 Synergy drug-eluting stent with excellent angiographic results and 0% residual stenosis status post PTCA and stent placement. 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 /[id number]/MODL MTDD
[2018-03-15] MEDS ORDERED: IOPAMIDOL (ISOVUE-300) 100 ML BTL ONE ×2 (15:05→16:34)
[2018-03-15] MEDS ORDERED: NALOXONE HCL 0.4 MG/ML INJ IVP PRN (16:01)
[2018-03-15] MEDS ORDERED: MIDAZOLAM 2 MG/2 ML VIAL IVP PRN (16:01)
[2018-03-15] MEDS ORDERED: MEPERIDINE 25 MG/ML SYR IVP PRN (16:01)
[2018-03-15] MEDS ORDERED: HEPARIN 10,000 UNIT/10 ML MDV (1,000 UNIT/ML) IVP PRN (16:01)
[2018-03-15] MEDS ORDERED: PROTAMINE SULFATE 50 MG/5 ML VIAL IVP PRN (16:01)
[2018-03-15] MEDS ORDERED: FLUMAZENIL 0.5 MG/5 ML MDV IVP PRN (16:01)
[2018-03-15] MEDS ORDERED: ALTEPLASE 2 MG VIAL IVP PRN (16:01)
[2018-03-15] MEDS ORDERED: fentaNYL 100 MCG/2 ML INJ IVP PRN (16:01)
[2018-03-15] MEDS ORDERED: LIDOCAINE 2% JELLY 20 ML (UROJECT) ONE (16:11)
--- NOTE | 2018-03-15 17:24 | ECHO ---
[email or web address] [address] [address] Main: [phone] Fax: Transthoracic Echocardiogram Name: LAURO CANO MR#: [id number] Study Date: 03/15/2018 Study Time: 08:46 AM Date of : 1945 Age: 72 year(s) Height: 177.8 cm (70 in.) Weight: 87.09 kg (192 lb.) BSA: 2.05 m2 Gender: Male Examination: Echo Indication: Chest pain/NSTEMI Image Quality: Contrast: Requested by: Susan Wang BP: 106 mmHg/60 mmHg Heart Rate: Rhythm: Indication: Chest pain/NSTEMI Procedure Staff Seat Joiner Chainstitch: Gina Liz RDCS Reading Physician: Adriana Russell MD Requesting Provider: Conclusions: Normal size left ventricle. The ejection fraction is estimated to be 50-55 %. LV septal motion consistent with conduction abnormality. LV inferior wall is hypokinetic . Normal size right ventricle. Normal RV function. The left atrium is mildly dilated. Mild mitral valve regurgitation is present. Mild tricuspid regurgitation is present. RVSP is 30mmHG.. Mild pulmonic valve regurgitation is noted. No pericardial effusion. No prior echo Measurements: Chambers Valvular Assessment AV/MV Valvular Assessment TV/PV Normal Normal Normal Name Value Range Name Value Range Name Value Range Ao Michaela (MM): 3.5 cm (2.2 cm-3.7 AV Vmax: 1.06 m/s (1 m/s-1.7 TR Vmax: 2.50 mm/s ( - ) cm) m/s) TR PGmax: 25 mmHg ( - ) IVSd (2D): 0.7 cm (0.6 cm-1.1 AV maxP mmHg ( - ) syst. PAP: 30 mmHg ( - ) cm) AV meanP mmHg ( - ) LVDd (2D): 5.0 cm (4.2 cm-5.9 MV E Vmax: 0.57 m/s ( - ) cm) MV A Vmax: 0.75 m/s ( - ) LVDs (2D): 3.0 cm (2.1 cm-4 MV E/A: 0.76 ( - ) cm) LVPWd (2D): 0.6 cm (0.6 cm-1 cm) LVEF (BP): 61 % (>=55 %) EF Range: 50-55 % Patient: LAURO CANO Study Date: 03/15/2018 Page 1 of 2 08:46 AM Continued Measurements: Chambers Valvular Assessment AV/MV Valvular Assessment TV/PV Name Value Name Value Name Value LADs: 3.4 cm MV E/E' Septal: 10.50 CVP (est.): 5 mmHg LADs Lon.5 cm MV E/E' Lateral: 7.90 LA Area: 22.8 cm2 LA Volume: 75 ml LA Volume Index: 36.6 ml/m2 Additional Vessels Name Value Ao Ascendin.9 cm Findings: Left Ventricle: Normal size left ventricle. No LV hypertrophy. The ejection fraction is estimated to be 50-55 %. LV septal motion consistent with conduction abnormality. LV inferior wall is hypokinetic . Right Ventricle: Normal size right ventricle. Normal RV function. Left Atrium: The left atrium is mildly dilated. Right Atrium: The right atrium is normal in size. Mitral Valve: The mitral valve is normal in appearance and function. Mild mitral valve regurgitation is present. Aortic Valve: Mild aortic cusp calcification is noted. The aortic valve is tri-leaflet. Trivial aortic valve regurgitation. Tricuspid Valve: The tricuspid valve is normal in appearance and function. Mild tricuspid regurgitation is present. The pulmonary artery pressure is normal. RVSP is 30mmHG.. Pulmonic Valve: The pulmonic valve is normal in appearance and function. Mild pulmonic valve regurgitation is noted. Aorta: The aorta is normal. Pericardium: No pericardial effusion. (No Signature Object) Patient: LAURO CANO Study Date: 03/15/2018 Page 2 of 2 08:46 AM [id number]
--- NOTE | 2018-03-15 17:27 | PDRADPN ---
Radiology Procedure Note Date of Procedure: 03/15/18 Radiologist: Nadya Heller Anesthesia: IV Sedation Pre-op Diagnosis: RT ILIAC DISSECTION Post-op Diagnosis: SAME Indication: FLOW LIMITING DISSECTION Procedure: ILIAC ANGIOGRAM WITH STENT PLACEMENT Finding(s): WIDE OPEN FLOW POST STENT PLACEMENT Inf/Abcess present in the surg proc area at time of surgery?: No
[2018-03-15] MEDS: buPROPion SR 150 MG TAB PO SCH (22:14)
[2018-03-15] MEDS: lamoTRIgine 100 MG TAB PO SCH (22:17)
[2018-03-15] MEDS: PARoxetine HCL 20 MG TAB PO SCH (22:17)
[2018-03-15] MEDS: buPROPion XL 150 MG TAB PO SCH (22:17)
[2018-03-16 04:42] LABS: PLATELET COUNT 187 10^3/uL (150-400)
--- NOTE | 2018-03-16 05:25 | CPIP ---
PROCEDURE: Selective femoral angiography from an existing right common femoral artery sheath. INDICATION FOR THE PROCEDURE: The patient underwent angiography, angioplasty and stent implantation from a right groin approach. The procedure was complicated by a kink in the guiding catheter, requir ing us to remove the entire device out to bring the kinked section of the guiding catheter outside th e body, and then the guiding catheter was cut with iris scissors. A J-wire was then advanced into th e aorta, and a long sheath was used to complete the case. Following the procedure, the long sheath w as exchanged for a short sheath, and it was noted in the CVC that his pedal pulses were reduced moe red to the other side and we were unable to transduce the pressure well. It was noted prior to the p rocedure today he had quite a tortuous iliac which is, of course, a risk factor for dissection. PROCEDURE IN DETAIL: The patient was taken back to the solder making laborer to evaluate the femoral sheath prior to its removal. The patient's bladder was full of contrast-containing urine which compromised the q uality of the pictures. We, therefore, placed a straight cath to drain the bladder and performed ang iography, documenting a dissection of the external iliac distal to the internal iliac takeoff. There was no evidence of thrombus, but the dissection did appear to be somewhat flow-limiting. Because of the findings, we decided to proceed with an intraoperative consultation with Dr. Laura Heller for possible balloon angioplasty or stent implantation of this lesion to tack up the dissection and improve the b lood flow to the femoral artery. Dr. Laura Heller saw the patient with me in consultation and had decided to perform initial balloon angioplasty, followed by possible stent implantation if necessary to tack up the dissection and improve the blood flow to the right leg. /[id number]/MODL
[2018-03-16] MEDS ORDERED: LISINOPRIL/HCTZ 10/12.5 MG 1 EA TAB PO SCH (09:00)
[2018-03-16] MEDS ORDERED: Pantoprazole Sodium [Protonix] 20 MG PO SCH (09:00)
[2018-03-16] MEDS ORDERED: ASPIRIN EC 325 MG TAB PO SCH (09:00)
[2018-03-16] MEDS ORDERED: CLOPIDOGREL BISULFATE 75 MG TAB PO SCH (09:00)
[2018-03-16] MEDS: lamoTRIgine 100 MG TAB PO SCH (09:48)
[2018-03-16] MEDS: PARoxetine HCL 20 MG TAB PO SCH (09:48)
[2018-03-16] MEDS: buPROPion XL 150 MG TAB PO SCH (09:49)
[2018-03-16] MEDS: buPROPion SR 150 MG TAB PO SCH (10:08)
[2018-03-16 11:59] VITALS: BP 121/72
[2018-03-16] MEDS ORDERED: PANTOPRAZOLE SODIUM 40 MG TAB PO SCH (13:30)
[2018-03-16] MEDS ORDERED: LISINOPRIL 20 MG TAB PO SCH (13:30)
[2018-03-16] MEDS ORDERED: METOPROLOL TARTRATE 25 MG TAB PO SCH (13:30)
[2018-03-16] MEDS ORDERED: ROSUVASTATIN CALCIUM 10 MG TAB PO SCH (13:30)
--- NOTE | 2018-03-16 13:36 | PDCARPN ---
Cardiology Progress Note Chief Complaint: Patient reports he would like to go home. Assessment/Plan: Assessment: 72 year male with significant past history that includes GERD with history Coon's esophagus and hypertension, presented 09/12/2017 with complaint of chest pressure and left arm pain. Electrocardiogram showing no acute ST or T- wave abnormalities, initial troponin negative upon ED visit. Was admitted, noted to have elevated serial troponin of 1.810. Taken to cardiac catheterization lab which Dr. Psator performed diagnostic heart catheterization , noted to [id number] disease in the LAD and circumflex, total occlusion mid distal RCA. Percutaneous coronary intervention was done at that time, in which 2 LON implantation as for done (4 x 16 synergy in a 4 x 20 synergy LON). LV-gram done noting EF of 50% with basal and distal inferior wall hypokinesis. Patient did have torturous iliac artery, and dissection was noted with slower flow post cardiac catheterization. Patient was taken later that afternoon to interventional radiology, which Dr. Heller implanted stent, postprocedure showing widely patent iliac. 03/16/2018: Patient reports no chest pain, pressure, arm pain since post PCI. He has maintained sinus rhythm with no malignant arrhythmias or pauses. Electrocardiogram done this morning showing sinus rhythm leftward axis, nonspecific T-wave abnormalities in inferior leads, premature atrial contraction. He has been up and walking the unit without difficulty. Fasting lipid panel done today showing triglycerides of 210, total cholesterol 211, LDL 141, HDL 28. Right groin site, catheter insertion site, with no redness, swelling hematoma, or signs of infection. No auscultated bruit. Plan: 1. NSTEMI/CAD: Totalled RCA, which was open 2 LON implantation. Patient currently asymptomatic. Patient has been started on dual anti-platelet therapy aspirin and clopidogrel. He has been instituted on metoprolol tartrate. He will continue home dose of lisinopril. 2. Hyperlipidemia: Patient has been started on Crestor, will plan on repeating fasting lipid, liver and CPK in 8 weeks, for evaluation of therapy. 3. 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 +3 dorsal pedal post tibial pulses, normal CMS checks to right lower extremity. Med management as listed above. 4. Hypertension: Blood pressure within normal limits, with the addition of metoprolol, will discontinue patient's hydrochlorothiazide dose, have asked that he monitor his blood pressure on a daily basis, keeping a log, returning it to our office for further evaluation. Patient is planning to be discharged home today. Post PCI discharge instructions went over with the patient including monitoring for signs of infection, bleeding precautions, activity restrictions. It was stressed the importance with new LON implantations the importance of dual anti-platelet therapy. He verbalizes understanding. Have scheduled the patient for follow- up visit at our office next Monday. Patient was seen Dr. Pastor 03/16/18 13:35 Subjective: He reports no chest pain, pressure, shortness of breath orthopnea, PND palpitations, lightheadedness, near-syncope or syncopal. Reviewed/Discussed With: hospitalist (Dr Acosta), other (Dr Pastor) Objective: Vital Signs (8 Hrs) Temp Pulse Resp BP Pulse Ox 03/16/18 11:57 36.8 C 74 18 121/72 H 95 03/16/18 07:59 36.8 C 83 12 121/77 H 94 Intake/Output (24 Hrs) 03/15/18 03/16/18 03/17/18 05:59 05:59 05:59 Intake Total 1750 500 Output Total 1125 Balance 625 500 Intake: Oral (ml) 550 500 IV Intake (ml) 1200 Output: Urine (ml) 1125 Catheter 1125 Other: Weight 87.09 kg 89.8 kg Output Comment Catheter martinez Number of Voids Toilet 2 Number of Stools Catheter 1 Result Diagrams: 03/16/18 03:20 03/16/18 03:20 Cardiac Labs: Cardiac Lab Results (72 Hrs) 03/15/18 06:00 CK-MB (CK-2) Fraction 21.80 H Troponin I 1.810 H - Physical Exam Constitutional: WDWN, healthy appearing, no apparent distress Ears, Nose, Mouth, Throat: moist mucous membranes Cardiovascular: regular rate and rhythm, no murmurs, no rubs, no gallops, pulses symmetric bilat, No jugular vein distention, No carotid bruit Peripheral Pulses: 2+: carotid (R), carotid (L), 3+: dorsalis-pedis (R), dorsalis-pedis (L) Respiratory: clear to auscultate bilat, no crackles, no wheezes Gastrointestinal: normoactive bowel sounds, no tenderness, no masses Skin: warm, no edema, other (Right groin site, catheter insertion site, with no redness, swelling, drainage, no auscultated bruit site.) Musculoskeletal: no muscular tenderness Neurologic: AAOx3 Psychiatric: cooperative, interactive, following commands ICD10 Worksheet Patient Problems: Problems Problem Status Onset Chest pain Acute Fall from ladder Acute History of fusion of cervical spine Acute Hypertension Acute Lower extremity weakness Acute Pelvic hematoma in male Acute Thoracic spine fracture Acute
--- NOTE | 2018-03-16 13:37 | PDDCSUM ---
Discharge Summary Discharge Summary: The pt is a 72 yo male admitted with chest pain and NSTEMI. He was taken to cath. He had stent x 2 of the RCA with balloon angioplasty. He has been started on dual ap therapy. Statin has been started. HCTZ has been stopped. Lisinopril continued. He will f/u with cards in 2-4 weeks. DDX #NSTEMI #HTN #GERD: cont PPI #EARLY Dementia: Exam: VSS NAD AAOX3 RRR CTA B S/NT/ND MEDS: SEE MED REC F/U: PER ABOVE D/W CARDIOLOGY. D/W NURSING AND CM TOTAL TIME SPENT ON D/C IS 35 MINS.
--- NOTE | 2018-03-16 15:15 | PDMN ---
Medical Necessity Medical necessity: Change to inpt as of 03/16/18 @ 1502. Pt meets inpt criteria per MD order and MCG M-230, Myocardial Infarction. 72 y/o admitted w/chest pain and NSTEMI, underwent heart cath w/balloon angioplasty stent X 2 RCA.
--- NOTE | 2018-03-16 16:47 | ASDISCHSUM ---
Discharge Information Plan Status:Home with No Needs Medically Cleared to Leave:03/16/2018 Discharge Date:03/16/2018 03:37 PM CM D/C Disposition:Home, Routine, Self-Care ADT D/C Disposition:Home, Routine, Self-Care Projected Discharge Date:03/16/2018 03:37 PM Transportation at D/C: Discharge Delay Reason: Follow-Up Date:03/16/2018 03:37 PM Discharge Slot: Final Diagnosis: Placement Information Patient Contact Information Contact Name:NIRAJ Relationship: Address:[address] [place] [address] [address] City:[place] Alternate Phone: [facility]/Zip Code:[place] [address] Email: Financial Information Financial Class:Medicare Advantage Plans Primary Plan Desc:[employer] GOLD MEDICARE Primary Plan Number:[id number] Secondary Plan Desc: Secondary Plan Number: Assessment Information LACE LACE Length of stay for Answers: Less than 1 day current admission Acuity / Level of Answers: No Care: Did the patient have an inpatient admission? Comorbidities - select Answers: Dementia all that apply Other Notes: HTN; GERD # of Emergency department Answers: 1-2 visits in the last 6 months Score: 5 Date Signed: 03/16/2018 04:46 PM Electronically Signed By:Renetta Shea RN Intervention Information
--- NOTE | 2018-03-17 10:02 | CPEKG ---
Test Reason : OPEN Blood Pressure : / mmHG Vent. Rate : 082 BPM Atrial Rate : 079 BPM P-R Int : 184 ms QRS Dur : 108 ms QT Int : 398 ms P-R-T Axes : 051 -30 -59 degrees QTc Int : 465 ms Sinus rhythm Atrial premature complex Left axis deviation Inferior ST/T wave changes Confirmed by Asael Guevara ([id number]) on 03/17/2018 10:01:44 AM Referred By: Confirmed By:Asael Guevara
== END 2018-03-16 15:37 | disposition home or self-care (01) | DRG 247 ==
LOC: F2W 03-15 20:30 → OBSVTOIN 03-16 15:02
PROVIDERS: ADMIT Family Medicine; ATTEND Family Medicine
DX: I21.4 Non-ST elevation (NSTEMI) myocardial infarction (principal); I10 Essential (primary) hypertension; K21.9 Gastro-esophageal reflux disease without esophagitis; F03.90 Unspecified dementia, unspecified severity, without behavioral disturbance, psychotic disturbance, mood disturbance, and anxiety; K22.70 Barrett's esophagus without dysplasia; I25.10 Atherosclerotic heart disease of native coronary artery without angina pectoris; E78.5 Hyperlipidemia, unspecified
CPT/HCPCS: 84484-PO; C1725; C1757; C1760; C1769; C1874; C1887; C1894; C2628; C9600; G0378; J0130; J0461; J0583; J1644; J2250; J3010; Q9967